=== PATIENT | female | born 1950 | race African-American/Black ===

== ENCOUNTER → 2017-02-23 | Outpatient (CLI) | payer BC, OTHER ==
[~2017-02-23] MED LIST: CRUTCH1 EACH MC; FELDENE20 MG PO; GLUCOPHAGE1000 MG PO; HYDROCHLOROTHIA25 M1 PO; MEDROL4 MG PO; MOBIC15 MG PO; NAPROSYN250 MG PO; NORCO 5-325 TA1 EACH PO; SYNTHROID25 MCG PO; TRAMADOL-ACETA1 EACH PO; VENTOLIN HFA 1818 GM; VENTOLIN HFA INH8 GM INH; ZESTRIL20 MG PO
== END ==
LOC: RAD 03:07
DX: Z12.31 Encounter for screening mammogram for malignant neoplasm of breast (principal)

== ENCOUNTER → 2018-02-24 | Outpatient (CLI) | payer BC, OTHER | LOC: RAD 01:16 | DX: Z12.31 Encounter for screening mammogram for malignant neoplasm of breast (principal) ==

== ENCOUNTER → 2019-03-07 | Outpatient (CLI) | payer BC, OTHER | LOC: BC 12:31 | DX: Z12.31 Encounter for screening mammogram for malignant neoplasm of breast (principal) ==

== ENCOUNTER → 2020-03-14 | Outpatient (CLI) | payer BC, OTHER | LOC: RAD 08:08 → BC 14:47 → RAD 14:57 | DX: Z12.31 Encounter for screening mammogram for malignant neoplasm of breast (principal) ==

== ENCOUNTER → 2021-03-25 | Outpatient (CLI) | payer BC, OTHER | LOC: BC 08:05 | PROVIDERS: ATTEND Obstetrics & Gynecology | DX: Z12.31 Encounter for screening mammogram for malignant neoplasm of breast (principal) ==